=== PATIENT | female | born 1935 | race Caucasian/White ===

== ENCOUNTER 2016-09-21 17:19 | Inpatient (IN) | payer MEDICARE ==
[~2016-09-21] VITALS: Ht 162.6 cm; Wt 84.0 kg
[~2016-09-21 17:19] MED LIST: ASCORBIC ACID500 MG PO; ASPIRIN EC81 M1 PO; CALAN SR240 MG PO; CALCIUM 600+D T1 TA1 PO; COLACE100 MG PO; DIABETA5 MG PO; GARLIC1 CAP PO; GLUCOPHAGE850 MG PO; HYDROCODONE-APA1 TAB PO; LIPITOR80 MG PO; LOTENSIN20 MG PO; MULTI-DAY VITAM1 TAB PO; NEURONTIN 300300 MG PO; PLAVIX75 MG PO; PLETAL50 MG PO; VITAMIN D250000 UNIT PO; ZYLOPRIM300 MG PO
[2016-09-21 18:03] LABS: BASOPHILS 0.2 % (0.0-2.0); EOSINOPHILS 1.5 % (0-7); IMMATURE GRANULOCYTES 1.3 % (0-5); LYMPHOCYTES 11.7 % (15-50); MCH 31.6 pg (26.0-34.0); MCHC 31.6 g/dL (31.0-37.0); MEAN PLATELET VOLUME 9.4 fL (7.4-10.4); MONOCYTES 1.2 % (2-11); NEUTROPHILS 84.1 % (40-80); PLATELET COUNT 295 10x3/uL (130-400); RDW 14.5 % (11.5-14.5)
[2016-09-21 18:34] LABS: ALBUMIN 3.3 g/dL (3.4-5.0); ALKALINE PHOSPHATASE 55 U/L (46-116); ALT (SGPT) 25 U/L (10-68); BILIRUBIN - TOTAL 0.27 mg/dL (0.2-1.3); CALCIUM 9.8 mg/dL (8.5-10.1); CARBON DIOXIDE 19.8 mmol/L (21.0-32.0); CHLORIDE - SERUM 101 mmol/L (98-107); CREATINE KINASE 35 UL (21-215); CREATININE - SERUM 2.5 mg/dL (0.6-1.3); PROTEIN - SERUM 6.3 g/dL (6.4-8.2); SODIUM 134 mmol/L (136-145); UREA NITROGEN 40 mg/dL (7-18); eGFR NON AFRICAN AMERICAN 20 mL/min (90-120)
[2016-09-21 18:38] LABS: CALC OSMOLALITY 294 mosm/kg (275-300); TROPONIN-I < 0.017 ng/mL (0.000-0.060)
[2016-09-21 18:40] LABS: GLUCOSE 409 mg/dL (74-106); POTASSIUM - SERUM 6.8 mmol/L (3.5-5.1)
[2016-09-21 19:05] LABS: APPEARANCE HAZY (CLEAR); BILIRUBIN NEGATIVE (NEGATIVE); COLOR YELLOW (YELLOW); GLUCOSE NEGATIVE (NEGATIVE); KETONE NEGATIVE (NEGATIVE); LEUKOCYTE ESTERASE TRACE (NEGATIVE); NITRITE NEGATIVE (NEGATIVE); PROTEIN 2+ mg/dL (NEGATIVE); SPECIFIC GRAVITY 1.015 (1.005-1.020); UROBILINOGEN NORMAL (NORMAL)
[2016-09-21 19:10] LABS: AMORPHOUS SEDIMENT <1+ /lpf (NONE SEEN); BACTERIA FEW /hpf (NONE SEEN); EPITHELIAL CELLS 0-5 /hpf (0-5); HYALINE CAST 0-5 /lpf (NONE SEEN); RED CELLS - URINE 0-5 /hpf (0-5); WHITE CELLS - URINE 0-5 /hpf (0-5)
--- NOTE | 2016-09-21 19:41 | NUR ---
Patient Name: JAGJIT MCDONALD Admission Status: ER Accout number: [id number] Admission Date: 09-21-2016 : 1935 Admission Diagnosis: hyperkalemia Attending: MARYANN Current LOS: 1 Anticipated DC Date: 09-24-2016 Planned Disposition: Home Health Service Primary Insurance: [employer] PPO MCR ADVANT Discharge Planning Comments: Cm met with patient and spouse to complete initial discharge planning assessment. Spouse gave consent to complete assessment. Patient lives at home with spouse and is usually independent in her care at home. She was recently discharged from hospital with hypoglycemia episodes. She has [facility] and spouse stated they have just admitted her into their services. Spouse plans for the patient plans to return home with resumption of [facility]. CM will continue to follow and assist with dc plan/needs. Melon Packer: Beba Abarca RN, [facility] [phone] Is the patient Alert and Oriented? Yes 0 * How many steps to enter\exit or inside your home? One 0 * PCP Dr. Tariq Mendoza 0 * Pharmacy [facility] near the [facility] 0 * Preadmission Environment Home with Family 0 * ADLs Independent 0 * Equipment Cane 0 * List name and contact numbers for known caregivers / representatives who currently or will assist patient after discharge: Leo Mcdonald - spouse - [phone] 0 * Community resources currently utilized Home Health 0 * Please name any agencies selected above. [facility] 0 * Additional services required to return to the preadmission environment? No 0 * Can the patient safely return to the preadmission environment? Yes 0 * Has this patient been hospitalized within the prior 30 days at any hospital? Yes
--- NOTE | 2016-09-21 19:50 | NUR ---
RECEIVED PATIENT FROM ER VIA STRETCHER TO 2307. PATIENT IS LETHARGIC AND DIFFICULT TO AWAKEN, AROUSES TO VOICE BUT RETURNS TO SLEEP. EYES PERRLA @ 4MM WITH BRISK RESPONSE, SCLERA IS WHITE. ORAL/NASAL MUCOSA IS MOIST AND INTACT, PATIENT ON 100% O2 VIA NRB MASK. S1/S2 NOTED WITH PATIENT NSR ON TELEMETRY WITH HR 64, RHYTHMIC AND REGULAR. BREATHING IS SHALLOW WITH USE OF ACCESSORY MUSCLES, ROUGH LUNG SOUNDS BILATERAL UPPER WITH DIMINISHED LOWER BUT DIFFICULT TO AUSCULTATE FROM SNORING. ABDOMEN IS SOFT AND NON-TENDER, BOWEL SOUNDS HYPOACTIVE X4. HINOJOSA SECURED IN PLACE VIA STATLOCK, CLEAR YELLOW URINE NOTED IN COLLECTION BAG. WEAKNESS NOTED IN ALL EXTREMITIES, [employer] SALES REPRESENTATIVE/PEDAL EQUAL AND BILATERAL. ALL PULSES PALPABLE, R GREAT TOE AMPUTATION NOTED. 20G PIV NOTED R WRIST/L AC, PATENT WITH FLUIDS INFUSING. UNABLE TO ASSESS PAIN DUE TO PATIENT LETHARGY, NO COMPLAINTS AT THIS TIME. NO FURTHER NEEDS AT THIS TIME, ALL VSS AND WILL CONTINUE TO MONITOR.
[2016-09-21 19:59] VITALS: BP 161/75; BMI 32.3
[2016-09-21 20:00] VITALS: BP 164/79
[2016-09-21 21:00] VITALS: BP 149/74
--- NOTE | 2016-09-21 21:00 | NUR ---
NO VISITORS AT THIS TIME, PATIENT RESTING IN BED WITH EYES CLOSED. NRB MASK REMOVED, PATIENT ON VENTI MASK @ 50% WITH O2 SAT 98%. PATIENT NSR ON TELEMETRY WITH HR 71, RHYTHMIC AND REGULAR. NO FURTHER NEEDS AT THIS TIME, ALL VSS AND WILL CONTINUE TO MONITOR.
--- NOTE | 2016-09-21 21:18 | NUR ---
2109 - DR. BUENROSTRO PAGED AND NOTIFIED OF NEW LAB RESULTS AND STATUS REPORT. NEW ORDERS REC'C.
--- NOTE | 2016-09-21 21:30 | NUR ---
ZOSYN PULLED BY RN TRAVELING, TO BE GIVEN 8 HRS POST ER DOSE. PATIENT RESTING IN BED WITH EYES CLOSED, WILL CONTINUE TO MONITOR.
[2016-09-21 22:00] VITALS: BP 161/83
[2016-09-21 23:00] VITALS: BP 157/71
--- NOTE | 2016-09-21 23:00 | NUR ---
REASSESSMENT COMPLETED PER FLOWSHEET, PATIENT RESTING IN BED WITH EYES CLOSED. PATIENT IS ORIENTED X4, BUT STILL SLIGHTLY LETHARGIC. PATIENT IS NSR ON TELEMETRY WITH HR 0F 74, RHYTHMIC AND REGULAR. ROUGH SOUNDS STILL NOTED BILATERAL UPPER WITH DIMINISHED LOWER, "BREATHING IS EASIER" BUT STILL SLIGHTLY SHALLOW WITH O2 SAT 97% ON 50% VENTI MASK. PATIENT DENIES PAIN OR OTHER NEEDS AT THIS TIME, ALL VSS AND WILL CONTINUE TO MONITOR.
[2016-09-22] VITALS (16 sets, daily range): BP systolic 131–177; BP diastolic 63–93; Ht 162.6 cm; Wt 84.0 kg
--- NOTE | 2016-09-22 01:00 | NUR ---
PATIENT RESTING IN BED WITH EYES CLOSED, BREATHING IS SLIGHTLY SHALLOW. PATIENT ROUSES EASILY TO VOICE, CAN FOLLOW DIRECTIONS. PATIENT DENIES PAIN OR OTHER NEEDS AT THIS TIME, ALL VSS AND WILL CONTINUE TO MONITOR.
--- NOTE | 2016-09-22 03:00 | NUR ---
REASSESSMENT COMPLETED PER FLOWSHEET, PATIENT RESTING IN BED WITH EYES CLOSED. BREATHING IS SLIGHTLY SHALLOW, CRACKLES NOTED BILATERAL UPPER WITH DIMINISHED LOWER. O2 SAT 94% ON 50% VENTI MASK, PATIENT NSR ON TELEMETRY WITH HR 81. PATIENT DENIES PAIN OR OTHER NEEDS AT THIS TIME, ALL VSS AND WILL CONTINUE TO MONITOR.
[2016-09-22 03:46] LABS: BASOPHILS 0.2 % (0.0-2.0); EOSINOPHILS 0.3 % (0-7); HEMATOCRIT 34.5 % (36.0-48.0); HEMOGLOBIN 11.2 g/dL (12-16); IMMATURE GRANULOCYTES 0.7 % (0-5); LYMPHOCYTES 11.9 % (15-50); MCH 31.8 pg (26.0-34.0); MCHC 32.5 g/dL (31.0-37.0); MEAN PLATELET VOLUME 9.4 fL (7.4-10.4); MONOCYTES 12.2 % (2-11); NEUTROPHILS 74.7 % (40-80); PLATELET COUNT 310 10x3/uL (130-400); RBC 3.52 10x6/uL (4.00-5.40); RDW 14.3 % (11.5-14.5)
[2016-09-22 03:50] LABS: WBC 12.9 10x3/uL (4.8-10.8)
[2016-09-22 04:05] LABS: ALBUMIN 3.2 g/dL (3.4-5.0); BILIRUBIN - TOTAL 0.48 mg/dL (0.2-1.3); CALCIUM 9.8 mg/dL (8.5-10.1); PROTEIN - SERUM 6.5 g/dL (6.4-8.2)
[2016-09-22 04:06] LABS: ANION GAP 9.5 mmol/L (8-16); CARBON DIOXIDE 31.8 mmol/L (21.0-32.0); POTASSIUM - SERUM 5.3 mmol/L (3.5-5.1)
--- NOTE | 2016-09-22 08:01 | NUR ---
0700 PT AWAKE ALERT AND ORIENTED. ABLE TO OBEY COMMANDS WITH NO DEFICITS NOTED. SINUS RHYTHM NOTED ON MONITOR WITH PVCS. PT REMAINS ON VENTI MASK WITH STABLE O2 SAT. LUNG SOUNDS COURSE/CRACKLES IN UPPER LOBES BILAT AND RIGHT MIDDLE LOBE, LOWER LUNG SOUNDS DIMINISHED BILAT. SCDS ON PT, EXPLAINED RATIONALE FOR USE TO PT. PT DENIES PAIN AT THIS TIME. WILL CONTINUE TO MONITOR
--- NOTE | 2016-09-22 10:23 | NUR ---
0900 PT ABLE TO TAKE PO MEDS WITHOUT DIFFICULTY. DENIES PAIN OR DISCOMFORT AT THIS TIME. VITAL SIGNS STABLE
--- NOTE | 2016-09-22 12:02 | NUR ---
1100 PIV SITED IN LEFT HAND WITH 22GA ANGIOCATH VIA STERILE TECHNIQUE, TAPED AND SECURED. OLD PIV D/C AND PRESSURE DRESSING APPLIED. NO FURTHER CHANGES AT THIS TIME.
--- NOTE | 2016-09-22 19:02 | NUR ---
PT SITTING UP IN BED AT BEDSIDE
--- NOTE | 2016-09-22 20:51 | NUR ---
PT LYING IN BED, AWAKE, ALERT, ORIENTED. PT STATES SHE IS SIGNIFICANTLY WEAK, AND FEELS SHE WILL NOT BE ABLE TO STAND ON THE BEDSIDE SCALE FOR A DAILY WEIGHT. PTS BEDSCALE IS NOT WORKING AT THIS TIME. PT DENIES ANY ACUTE NEEDS. WILL MONITOR CLOSELY. BED LOW, HOB 30 DEGREES, CALL LIGHT IN REACH, SIDE RAILS X 2, SCD'S ON BILATERALLY AND WORKING PROPERLY.
--- NOTE | 2016-09-22 23:47 | NUR ---
PTS FSBS WAS 102 - PT DID EAT A VANILLA PUDDING FOR A BEDTIME SNACK. PT CURRENTLY LYING IN BED, EYES CLOSED, RESPIRATIONS EVEN AND UNLABORED. PT ROUSES EASILY TO VERBAL STIMULI. CONTINUE TO MONITOR CLOSELY. BED LOW, CALL LIGHT IN REACH, SIDE RAILS X 2, HOB 25 DEGREES.
--- NOTE | 2016-09-23 00:55 | NUR ---
PT LYING IN BED, EYES CLOSED, RESPIRATIONS EVEN AND UNLABORED. PT EASILY ROUSABLE TO VERBAL STIMULI. PT REPOSITIONED IN BED, DENIES ANY NEEDS. CONTINUE TO MONITOR CLOSELY. BED LOW, CALL LIGHT IN REACH, SIDE RAILS X 2, HOB 25 DEGREES.
--- NOTE | 2016-09-23 03:50 | NUR ---
PTS FSBS WAS 69 - VANILLA PUDDING GIVEN SNACK
[2016-09-23 04:15] VITALS: BP 117/86; BP 166/72
[2016-09-23 05:54] LABS: BASOPHILS 0.3 % (0.0-2.0); EOSINOPHILS 3.8 % (0-7); HEMATOCRIT 32.4 % (36.0-48.0); HEMOGLOBIN 10.4 g/dL (12-16); IMMATURE GRANULOCYTES 0.2 % (0-5); LYMPHOCYTES 11.4 % (15-50); MCH 31.3 pg (26.0-34.0); MCHC 32.1 g/dL (31.0-37.0); MCV 97.6 fL (80.0-100.0); MEAN PLATELET VOLUME 9.4 fL (7.4-10.4); NEUTROPHILS 72.3 % (40-80); PLATELET COUNT 290 10x3/uL (130-400); RBC 3.32 10x6/uL (4.00-5.40); RDW 14.1 % (11.5-14.5); WBC 11.9 10x3/uL (4.8-10.8)
[2016-09-23 06:38] LABS: ALBUMIN 2.7 g/dL (3.4-5.0); ANION GAP 12.6 mmol/L (8-16); BILIRUBIN - TOTAL 0.6 mg/dL (0.2-1.3); CALCIUM 8.4 mg/dL (8.5-10.1); CARBON DIOXIDE 26.9 mmol/L (21.0-32.0); CREATININE - SERUM 1.6 mg/dL (0.6-1.3); PROTEIN - SERUM 5.9 g/dL (6.4-8.2); URIC ACID 2.4 mg/dL (2.6-7.2)
[2016-09-23 06:41] LABS: MAGNESIUM - SERUM 1.4 mg/dL (1.8-2.4); POTASSIUM - SERUM 4.5 mmol/L (3.5-5.1)
--- NOTE | 2016-09-23 07:00 | NUR ---
RECEIVED REPORT. ASSUMED CARE OF PATIENT. CALL LIGHT WITHIN REACH. LYING ON LEFT LATERAL SIDE, RESP EVEN AND UNLABORED. ALERT/ORIENTED. DENIES NEEDS. NO DISTRESS.
[2016-09-23 08:27] VITALS: BP 177/85
--- NOTE | 2016-09-23 09:30 | NUR ---
HINOJOSA CATHETER REMOVED VIA NURSING STUDENET AND INSTRUCTOR ORDERED VIA . NO DISTRESS.
--- NOTE | 2016-09-23 10:53 | NUR ---
FSBS 194. PATIENT REFUSED 2 UNITS OF COVERAGE AT THIS TIME. NO DISTRESS.
[2016-09-23 12:02] VITALS: BP 168/72
--- NOTE | 2016-09-23 15:15 | NUR ---
ASSISTED PATIENT OOB TO BATHROOM. PATIENT ABLE TO VOID S/P HINOJOSA CATH REMOVAL. ASSISTED PATIENT BACK TO BED. NO DISTRESS.
--- NOTE | 2016-09-23 15:52 | NUR ---
FSBS 98. NO INSULIN COVERAGE REQUIRED.
[2016-09-23 16:38] VITALS: BP 110/56
--- NOTE | 2016-09-23 18:01 | NUR ---
SITTING IN BED WITH CROSSWORD PUZZLE. DENIES NEEDS. CALL LIGHT WITHIN REACH. NO DISTRESS.
[2016-09-23 21:06] VITALS: BP 171/87
--- NOTE | 2016-09-23 21:57 | NUR ---
PT LYING IN BED, EYES CLOSED, RESPIRATIONS EVEN AND UNLABORED. PT IS EASILY ROUSABLE TO VERBAL STIMULI. DENIES ANY CUTE NEEDS. CONTINUE TO MONITOR CLOSELY.
[2016-09-24 01:50] VITALS: BP 175/94
[2016-09-24 05:22] LABS: BASOPHILS 0.2 % (0.0-2.0); EOSINOPHILS 5.1 % (0-7); HEMATOCRIT 33.6 % (36.0-48.0); HEMOGLOBIN 10.8 g/dL (12-16); IMMATURE GRANULOCYTES 0.2 % (0-5); LYMPHOCYTES 14.8 % (15-50); MCH 31.9 pg (26.0-34.0); MCHC 32.1 g/dL (31.0-37.0); MCV 99.1 fL (80.0-100.0); MEAN PLATELET VOLUME 9.4 fL (7.4-10.4); MONOCYTES 10.3 % (2-11); NEUTROPHILS 69.4 % (40-80); PLATELET COUNT 280 10x3/uL (130-400); RBC 3.39 10x6/uL (4.00-5.40); RDW 14.1 % (11.5-14.5); WBC 10.9 10x3/uL (4.8-10.8)
[2016-09-24 05:39] LABS: HEMOGLOBIN A1C 5.8 % (4.8-6.0)
[2016-09-24 05:40] VITALS: BP 168/86
[2016-09-24 05:56] LABS: ALBUMIN 2.8 g/dL (3.4-5.0); ANION GAP 11.3 mmol/L (8-16); BILIRUBIN - TOTAL 0.73 mg/dL (0.2-1.3); CALCIUM 8.6 mg/dL (8.5-10.1); CARBON DIOXIDE 27.2 mmol/L (21.0-32.0); CREATININE - SERUM 1.4 mg/dL (0.6-1.3); MAGNESIUM - SERUM 1.4 mg/dL (1.8-2.4); POTASSIUM - SERUM 4.5 mmol/L (3.5-5.1); PROTEIN - SERUM 5.8 g/dL (6.4-8.2); T4 THYROXIN - FREE 1.15 ng/dL (0.76-1.46); THYROID STIMULATING HORMONE 0.88 uIU/mL (0.36-3.74)
[2016-09-24 08:03] VITALS: BP 149/86
--- NOTE | 2016-09-24 10:27 | NUR ---
PT IS ALERT. ASSESSMENT DONE PER FLOWSHEET. NO OTHER NEEDS AT THIS TIME. WILL CONTINUE TO MONITOR.
[2016-09-24] MEDS ORDERED: FERROUS SULFAT325 MG PO (10:45)
[2016-09-24] MEDS ORDERED: ZANTAC300 MG PO (10:47)
--- NOTE | 2016-09-24 11:25 | NUR ---
PT IS ALERT. NO SS OF DISTRESS AT THIS TIME. WILL CONTINUE TO MONITOR.
[2016-09-24 11:59] VITALS: BP 169/80
--- NOTE | 2016-09-24 12:20 | CN ---
PATIENT NAME:JAGJIT MCDONALD MEDICAL RECORD: [id number] : 35 LOCATION:D.M2 D.2136 ADMIT DATE: 09/21/16 ACCOUNT: [id number] CONSULTING PHYSICIAN: CHERYL NUÑEZ MD REFERRING PHYSICIAN: LETTY BUENROSTRO DO DATE OF CONSULTATION: 09/22/2016 HISTORY OF PRESENT ILLNESS: An 81-year-old lady with a history of peripheral vascular disease status post carotid endarterectomy on the right, has a history of diabetes mellitus, on JOSSE inhibitor, was able to make dinner, but then became more unresponsive, her called EMS. Upon arrival, she was found to be markedly bradycardic as well as hypotensive and hypoglycemic. Blood sugar of 39, D50 with some improvement. Since in the ER, was found to be in a junctional escape rhythm. Potassium was markedly elevated and she is on verapamil for antihypertensive and was given calcium bicarbonate and has responded nicely to therapy with normal sinus rhythm at this point. Potassium has improved markedly, as has creatinine. We are asked to see him concerning his cardiovascular status. PAST MEDICAL HISTORY: 1. History peripheral vascular disease status post endarterectomy on the right. 2. Hypertension. 3. Diabetes mellitus. 4. Dyslipidemia. ALLERGIES: PENICILLIN, SULFA, CLINDAMYCIN, ADHESIVE. HOME MEDICATIONS: Typically include Plavix 75 q. day, atorvastatin 80 mg q. day, benazepril 20 mg p.o. q. day, verapamil 240. day, Neurontin 300 b.i.d., aspirin 81 mg daily, glyburide 5 mg q. day, metformin 1 gram b.i.d. SOCIAL HISTORY: , lives here in [place]. Easily takes care of her ADLs, nonsmoker. REVIEW OF SYSTEMS: The patient reports easy bruising but reports no swollen glands. The patient reports no fever, no night sweats, no significant weight gain, no significant weight loss. No significant exercise tolerance. The patient reports no dry eyes, no irritation, no vision change. Patient reports no difficulty hearing and no ear pain. Patient reports no frequent nose bleeds or nose and sinus problems. Patient reports on arm pain on exertion. No shortness of breath while lying down. No history of heart murmur. Patient reports no cough, no wheezing or coughing up blood. Patient reports no abdominal pain, no vomiting. Normal appetite. No diarrhea and not vomiting blood. No nausea and no constipation. Patient reports no incontinence. No difficulty urinating. No hematuria. No increased frequency. Patient reports no muscle aches. No weakness, no arthralgias, no back pain. No swelling of the extremities. Patient reports no abnormal mole, no jaundice, no rashes. Reports no loss of consciousness. No weakness and no numbness. No seizures, dizziness, or headaches. The patient reports no depression, no sleep disturbance, feeling safe in a relationship and no alcohol abuse. Patient reports on fatigue. Reports no runny nose or sinus pressure. No itching, no hives, and no frequent sneezing. PHYSICAL EXAMINATION: GENERAL: Pleasant female in no acute distress, alert and oriented. CONSULT REPORT [id number] JAGJIT MCDONALD VITAL SIGNS: Blood pressure 156/75, pulse 84, with a sinus rhythm with occasional PVC. HEENT: Normocephalic, atraumatic. NECK: Soft, bruit on the right is noted. HEART: Regular, I-II/ systolic ejection murmur. LUNGS: Good air excursion. ABDOMEN: Soft, nontender. EXTREMITIES: Pulses 2+. There is no edema. NEUROLOGIC: Grossly intact. IMPRESSION: Hyperkalemia, probably with a baseline mild renal insufficiency. Bradyarrhythmia, probably exacerbated by Calan as well. I agree with amlodipine alpha blockade combination for hypertension as you are doing. Continue to monitor for significant bradyarrhythmias, although there has been no recurrence since correction of potassium and holding a verapamil. TRANSINT:[id number] Voice Confirmation ID: [id number] DOCUMENT ID: [id number] CHERYL NUÑEZ MD at 1220 CC: [id number] DICTATION DATE: 09/22/16 1344 ENROLLMENT MANAGEMENT VICE PRESIDENT: 09/22/162053 ADM IN [facility] [address] [place] [address]
[2016-09-24 16:00] VITALS: BP 142/77
--- NOTE | 2016-09-24 20:19 | NUR ---
UP WITH ASSIST TO BR USING WALKER. HS MEDS GIVEN, NS 188, PT REFUSED COVERAGE PER S/S. NO OTHER NEEDS AT THIS TIME, BED LOW, CL IN REACH, WILL CONT TO MONITOR.
--- NOTE | 2016-09-24 22:04 | NUR ---
IV TO LEFT HAND OUT, TIP INTACT, COVERED WITH 2X2 AND TAPE. IV RESITED TO RIGHT FOREARM, 22 GAUGE, FIRST ATTEMPT BY Pauline BAUM RN.
[2016-09-24 22:07] VITALS: BP 184/87
[2016-09-25 01:57] VITALS: BP 167/97
--- NOTE | 2016-09-25 03:51 | NUR ---
UP WITH ASSIST TO BR.
[2016-09-25 05:09] LABS: BASOPHILS 0.5 % (0.0-2.0); EOSINOPHILS 5.7 % (0-7); HEMATOCRIT 32.8 % (36.0-48.0); HEMOGLOBIN 10.5 g/dL (12-16); IMMATURE GRANULOCYTES 0.2 % (0-5); LYMPHOCYTES 18.6 % (15-50); MCH 31.3 pg (26.0-34.0); MCV 97.6 fL (80.0-100.0); MEAN PLATELET VOLUME 9.5 fL (7.4-10.4); MONOCYTES 11.9 % (2-11); NEUTROPHILS 63.1 % (40-80); PLATELET COUNT 266 10x3/uL (130-400); RBC 3.36 10x6/uL (4.00-5.40); WBC 9.7 10x3/uL (4.8-10.8)
[2016-09-25 05:26] VITALS: BP 146/62
[2016-09-25 05:38] LABS: ALBUMIN 2.8 g/dL (3.4-5.0); ANION GAP 13.8 mmol/L (8-16); BILIRUBIN - TOTAL 0.66 mg/dL (0.2-1.3); CALCIUM 8.8 mg/dL (8.5-10.1); CARBON DIOXIDE 25.3 mmol/L (21.0-32.0); CREATININE - SERUM 1.5 mg/dL (0.6-1.3); MAGNESIUM - SERUM 1.6 mg/dL (1.8-2.4); PHOSPHOROUS 4.1 mg/dL (2.5-4.9); POTASSIUM - SERUM 4.1 mmol/L (3.5-5.1); PROTEIN - SERUM 5.8 g/dL (6.4-8.2)
--- NOTE | 2016-09-25 06:28 | NUR ---
NO CHANGES FROM PREVIOUS ASSESSMENT, CALL LIGHT IN REACH. WILL CONTINUE TO WITH PLAN OF CARE.
[2016-09-25] MEDS ORDERED: NORVASC10 MG PO (07:27)
[2016-09-25] MEDS ORDERED: CARDURA4 MG PO (07:27)
[2016-09-25] MEDS ORDERED: GLUCOPHAGE850 MG PO (07:29)
[2016-09-25] MEDS ORDERED: LEVAQUIN500 MG PO (07:33)
[2016-09-25 08:19] VITALS: BP 174/60
--- NOTE | 2016-09-25 08:31 | NUR ---
RECEIVED PT CARE. NO OTHER NEEDS AT THIS TIME. WILL CONTINUE PLAN OF CARE. NO OTHER NEEDS AT THIS TIME. WILL CONTINUE TO [facility].
--- NOTE | 2016-09-29 10:08 | CN ---
PATIENT NAME:JAGJIT WADDELL MEDICAL RECORD: [id number] : 35 LOCATION:D.M2 D.2136 ADMIT DATE: 09/21/16 ACCOUNT: [id number] CONSULTING PHYSICIAN: LINH ADAME MD REFERRING PHYSICIAN: LETTY BUENROSTRO DO DATE OF CONSULTATION: 09/22/2016 DIAGNOSES: 1. Junctional bradycardia. 2. Hyperkalemia. 3. Hypertension. 4. History of rheumatic fever. HISTORY OF PRESENT ILLNESS: Now, we have Ms. Waddell, who presents with decreased level of consciousness, found to have low blood sugar and hyperkalemia. She was initially with a junctional bradycardia. Her hyperkalemia was treated, her potassium is 3.0. She is now sinus rhythm 90s with PVCs. She has no previous cardiac history. She has a history of hypertension. She was on Calan as well as lisinopril. Her creatinine is in the 2 range. PHYSICAL EXAMINATION: GENERAL APPEARANCE: Well-nourished, well-developed, appears stated age. Level of distress, comfortable. PSYCHIATRIC: Mental status, alert, normal affect. Orientation, oriented to time, place and person. EYES: Lids and conjunctiva, noninjected. No discharge, no pallor. ENT: Lips, teeth, gums, normal dentition. Oropharynx, no cyanosis, no pallor. NECK: Carotid arteries, bilateral normal upstroke, no bruits, no thrills. JUGULAR VEINS: No jugular venous pressure or distention. CERVICAL LYMPH NODES: Nontender, nonenlarged. THYROID: Not enlarged. Nontender. No nodules. LUNGS: Respiratory effort, unlabored. CHEST: Normal curvature. No thoracic deformity. No chest wall tenderness. Percussion, resonant. Auscultation, clear. No wheezes, no rales, no rhonchi. CARDIOVASCULAR: Precordial exam, nondisplaced. No heaves or pericardial thrills. Rate and rhythm, regular. Heart sounds, normal S1, normal S2. No S3, no gallop, no rub. Systolic murmur, not heard. Diastolic murmur, not heard. EXTREMITIES: No cyanosis, no edema. Peripheral pulses, full and equal in all extremities, except as noted. No bruits appreciated. ABDOMEN: Soft, nondistended. Normal aorta. No bruit. Nontender. No masses. Liver, nontender, no hepatomegaly. Spleen, nontender, no splenomegaly. MUSCULOSKELETAL: No joint tenderness. No joint swelling. No erythema. NEUROLOGICAL: Normal gait, normal strength, normal tone. SKIN: Warm and dry. REVIEW OF SYSTEMS: The patient reports easy bruising but reports no swollen glands. The patient reports no fever, no night sweats, no significant weight gain, no significant weight loss. No significant exercise tolerance. The patient reports no dry eyes, no irritation, no vision change. Patient reports no difficulty hearing and no ear pain. Patient reports no frequent nose bleeds or nose and sinus problems. Patient reports on arm pain on exertion. No shortness of breath while lying down. No history of heart murmur. Patient reports no cough, no wheezing or coughing up blood. Patient reports no abdominal pain, no vomiting. Normal appetite. No diarrhea and not vomiting CONSULT REPORT [id number] JAGJIT WADDELL. No nausea and no constipation. Patient reports no incontinence. No difficulty urinating. No hematuria. No increased frequency. Patient reports no muscle aches. No weakness, no arthralgias, no back pain. No swelling of the extremities. Patient reports no abnormal mole, no jaundice, no rashes. Reports no loss of consciousness. No weakness and no numbness. No seizures, dizziness, or headaches. The patient reports no depression, no sleep disturbance, feeling safe in a relationship and no alcohol abuse. Patient reports on fatigue. Reports no runny nose or sinus pressure. No itching, no hives, and no frequent sneezing. OVERALL IMPRESSION: Most likely this is all medication induced. Her Calan and lisinopril have been discontinued. She is on Norvasc, her systolic blood pressure in 150s. We will add Cardura as well, would like to stay away from a beta-garett, but most likely the junctional bradycardia was due to hyperkalemia more than the Calan. She continues to have PVCs and tachycardia. We would try low dose beta-garett as well. We will get an echocardiogram for structural cardiac abnormalities in light of the frequent PVCS. TRANSINT:[id number] Voice Confirmation ID: [id number] DOCUMENT ID: [id number] LINH ADAME MD at 1008 CC: [id number] DICTATION DATE: 09/22/16 1227 WOOD BOAT BUILDER SUPERVISOR: 09/22/16 1901 DIS IN 09/25/16 [facility] [address] [place], [facility]901
--- NOTE | 2016-09-29 10:08 | EC ---
PATIENT:JAGJIT MCDONALD DATE OF SERVICE: 09/21/16 SEX: F MEDICAL RECORD: [id number] DATE OF : 35 LOCATION:D.M2 D.213 AGE OF PATIENT: 81 ADMISSION DATE: 09/21/16 REFERRING PHYSICIAN: INTERPRETING PHYSICIAN: LINH BENSON MD ECHOCARDIOGRAM REPORT ECHO CHARGES 4 ECHO COMPLETE CLINICAL DIAGNOSIS: DYSRHYTHMIA ECHOCARDIOGRAPHIC MEASUREMENTS (adult normal given) AC root (d.<3.7cm) 2.9 LV Septum d (<1.2 cm> 2.0 Valve Excursion 2.0 LV Septum (systole) 2.6 Left Atria (s.<4.0cm> 4.0 LVPW d(<1.2cm) 1.8 RV (d.<2.3cm) 2.8 LVPW (sytole) 2.4 LV diastole(<5.6CM) 5.0 MV E-F(>70mm/sec) LV systole 2.7 LVOT Diameter 1.9 MV exc.(>10mm) Est.ejection fraction (50-75%) Pericardial Effusion N DOPPLER: LVIT A 212 E 176. LA RVSP 61.0 LVOT 125 AOP1/2T Asc. Ao 170 RVOT 80.0 RA PA 104 AV Gradient Peak 12.0 AV Mean 5.5 AV Area 1.8 MV Gradient Peak 19.2 MV Mean 7.8 MV Area COMMENTS: Toolroom Machinist: Martin AZULOE Drafter Apprentice:1 Dr. Benson TAPE# PACS DATE OF SERVICE: 09/22/2016 Echocardiogram FINDINGS: 1. Left ventricle chamber size is within normal limits. Left ventricular systolic function is normal. Overall ejection fraction estimated at 55%. 2. Left atrium, right atrium, and right ventricle chamber sizes are upper limits of normal. Left atrium measures 4.0 cm. 3. Valvular structures: Aortic valve is heavily calcified as is the mitral ECHOCARDIOGRAM REPORT [id number] JAGJIT MCDONALD valve; however, neither of these were stenotic only sclerotic. 4. Doppler interrogation only reveals moderate mitral regurgitation, moderate tricuspid regurgitation, no other valvular insufficiency or stenosis; however, pulmonary systolic pressure is elevated estimated at 61 mmHg. 5. No evidence of pericardial effusion or left ventricular thrombus. TRANSINT:[id number] Voice Confirmation ID: [id number] DOCUMENT ID: [id number] LINH BENSON MD at 1008 CC: [id number] DICTATION DATE: 09/23/16 0759 PRODUCTION PLANNER SCHEDULER: 09/23/16 0952 DIS IN 09/25/16 [facility] [address] [id number]
--- NOTE | 2016-10-10 13:49 | CN ---
PATIENT NAME:JAGJIT WADDELL MEDICAL RECORD: [id number] : 35 LOCATION:D.M2 D.2136 ADMIT DATE: 09/21/16 ACCOUNT: [id number] CONSULTING PHYSICIAN: VONNIE JACKSON MD REFERRING PHYSICIAN: LIAM BUENROSTRO DO DATE OF CONSULTATION: 09/22/2016 CONSULT REQUESTING PHYSICIAN: Liam Buenrostro DO. REASON FOR CONSULTATION: Pneumonia and pulmonary nodule. HISTORY OF PRESENT ILLNESS: Ms. Waddell is an 81-year-old female. She was brought in yesterday to the ER. The patient was unresponsive and also she vomited after her lunch. The claims that she might have aspirated. The patient had a similar episode a week ago and she was admitted to [facility]. According to the , she has upper respiratory infection a few days ago and then she got a similar symptom. She is coughing without much sputum production. There is no fever and chills, no night sweats. On arrival to the ER, the patient was bradycardic. Her potassium level was high and she was hypoglycemic. She was given some bicarbonate yesterday and the potassium dropped down to 5.3. The patient does have a pulmonary nodule on the chest radiograph. According to the and patient, this was diagnosed 3 years ago. She has a lung biopsy a year ago and there was calcium deposit and the patient was told that that is benign. The patient was seen at [facility] by a receiving coordinator at that time. REVIEW OF SYSTEMS: Mainly in the history of present illness. PAST MEDICAL HISTORY: 1. Diabetes mellitus, uncontrolled. 2. Hypertension. 3. Peripheral vascular disease. 4. Hyperlipidemia. 5. History of lung nodule. The biopsy was negative a year ago at [facility] and seen by a receiving coordinator. PAST SURGICAL HISTORY: 1. Right carotid endarterectomy. 2. Tonsillectomy. 3. Atherectomy. 4. History of lung biopsy. ALLERGIES: SHE IS ALLERGIC TO PENICILLIN, SULFA, ADHESIVE, CLINDAMYCIN. MEDICATIONS: She was on benazepril and Calan. Her other medications, she is on vancomycin and Zosyn IV now. PHYSICAL EXAMINATION: GENERAL: Now, the patient is awake and alert. She is not in acute distress. VITAL SIGNS: Blood pressure is 156/75, pulse is 84, respiration is 19, temperature 97.5, SpO2 is 98% on 50% Venturi mask. HEENT: Conjunctivae are pink. Sclerae nonicteric. NECK: Supple. No JVD. CHEST: There are bibasilar crackles. No wheezing. HEART: Regular, normal sound, no murmur. CONSULT REPORT [id number] JAGJIT WADDELL ABDOMEN: Soft. Bowel sounds present. No hepatosplenomegaly. RECTAL: Deferred. EXTREMITIES: No cyanosis, no clubbing and no pedal edema. SKIN: Warm, normal turgor. CENTRAL NERVOUS SYSTEM: The patient is awake and alert. There is no obvious cranial nerve abnormality. The gait was not tested. IMAGING: Chest radiograph, there is pulmonary nodule. There is increased interstitial marking. There bibasilar and left upper lobe infiltrate. LABORATORY DATA: CBC: The WBC is 19,000, hemoglobin 12, hematocrit 38 and platelet count 295. Chemistry: Sodium 142, potassium 5.3, BUN is 9.5, creatinine is 2. ABG: The pH on admission was 7.29, pCO2 was 35.6, the pO2 was 45. Potassium on the ABG was 6.8. IMPRESSION: 1. Pneumonia, possible aspiration at the time of nausea and vomiting, possible community-acquired pneumonia with recent admission to [facility]. 2. Acute hypoxic respiratory failure secondary to #1. 3. Nausea and vomiting. 4. Hyperkalemia. 5. Hypoglycemia. 6. Chronic kidney disease, possible, [id number]. 7. History of pulmonary nodule. The workup at [facility] in the past was negative and the patient has negative lung biopsy. She is seen and followed by a receiving coordinator at [facility]. 8. Hypertension. RECOMMENDATION: 1. Continue vancomycin and Zosyn, though the patient is allergic to penicillin, but the patient is tolerating it. 2. I will add Mucinex DM. 3. Albuterol/ipratropium nebulizer p.r.n. 4. Consult nephrology. The patient was already seen by Dr. Benson. Dr. Buenrostro, once again thank you for involving me in the care of Ms. Waddell. TRANSINT:[id number] Voice Confirmation ID: [id number] DOCUMENT ID: [id number] VONNIE JACKSON MD at 1349 CC: DEBORAH INMAN MD [id number] DICTATION DATE: 09/22/16 1311 FISH STRINGER ASSEMBLER: 09/22/162014 DIS IN 09/25/16 [facility] [address] [id number]
== END 2016-09-25 12:00 | disposition home or self-care (01) | DRG 193 ==
LOC: D.ER 17:19 → D.M2 19:11 → D.ICU 19:11 → D.MS 21:40 → D.ICU 21:50 → D.M2 09-22 18:26
PROVIDERS: Emergency Medicine; Internal Medicine Nephrology; ADMIT Family Medicine
DX: J18.9 Pneumonia, unspecified organism (principal); J96.01 Acute respiratory failure with hypoxia; N17.9 Acute kidney failure, unspecified; R00.1 Bradycardia, unspecified; E11.40 Type 2 diabetes mellitus with diabetic neuropathy, unspecified; E11.649 Type 2 diabetes mellitus with hypoglycemia without coma; E11.22 Type 2 diabetes mellitus with diabetic chronic kidney disease; I12.9 Hypertensive chronic kidney disease with stage 1 through stage 4 chronic kidney disease, or unspecified chronic kidney disease; N18.9 Chronic kidney disease, unspecified; E78.5 Hyperlipidemia, unspecified; I73.9 Peripheral vascular disease, unspecified; R91.1 Solitary pulmonary nodule; E87.5 Hyperkalemia; Z87.891 Personal history of nicotine dependence

== ENCOUNTER → 2017-02-10 15:39 | Outpatient (CLI) | payer MEDICARE ==
[2016-09-22 12:16] VITALS: BMI 32.2
[~2017-02-10 15:39] MED LIST changes: +CARDURA4 MG PO; +FERROUS SULFAT325 MG PO; +LEVAQUIN500 MG PO; +NORVASC10 MG PO; +ZANTAC300 MG PO
== END | disposition home or self-care (01) ==
LOC: D.US 15:39
DX: I73.9 Peripheral vascular disease, unspecified (principal); I99.8 Other disorder of circulatory system

== ENCOUNTER → 2017-03-09 07:59 | Outpatient (CLI) | payer MEDICARE ==
[2016-09-22 12:16] VITALS: BMI 32.2
== END | disposition home or self-care (01) ==
LOC: D.MRI 07:59
DX: R93.2 Abnormal findings on diagnostic imaging of liver and biliary tract (principal)

== ENCOUNTER 2017-03-16 07:36 | Outpatient (CLI) | payer MEDICARE ==
[~2017-03-16] VITALS: Ht 162.6 cm; Wt 79.5 kg
[2017-03-16 09:08] LABS: ANION GAP 15.6 mmol/L (8-16); CARBON DIOXIDE 24.2 mmol/L (21.0-32.0); CREATININE - SERUM 1.9 mg/dL (0.6-1.3); POTASSIUM - SERUM 4.8 mmol/L (3.5-5.1)
[2017-03-16 09:09] LABS: INR 0.98 (0.85-1.17); PROTIME 12.8 SECONDS (11.6-15.0)
[2017-03-16] MEDS ORDERED: CARDURA4 MG PO (09:40)
[2017-03-16] MEDS ORDERED: JANUVIA100 MG PO (09:42)
[2017-03-16] MEDS ORDERED: LIPITOR20 MG PO (09:42)
[2017-03-16 09:44] LABS: BASOPHILS 0.8 % (0-2); HEMOGLOBIN 12.1 g/dL (12-16); IMMATURE GRANULOCYTES 0.1 % (0-5); LYMPHOCYTES 15.4 % (15-50); MCH 30.9 pg (26.0-34.0); MCHC 31.8 g/dL (31.0-37.0); MCV 96.9 fL (80.0-100.0); MEAN PLATELET VOLUME 9.5 fL (7.4-10.4); MONOCYTES 10.3 % (2-11); NEUTROPHILS 65.4 % (40-80); PLATELET COUNT 256 10x3/uL (130-400); RBC 3.92 10x6/uL (4.00-5.40); RDW 15.3 % (11.5-14.5); WBC 7.8 10x3/uL (4.8-10.8)
[2017-03-16] MEDS ORDERED: COLACE100 MG PO (09:44)
[2017-03-16] MEDS ORDERED: MULTIPLE VITAMI1 TA1 PO (09:45)
[2017-03-16] MEDS ORDERED: VITAMIN C1000 MG PO (09:47)
[2017-03-16] MEDS ORDERED: CALCIUM 600+D T1 TA1 PO (09:48)
[2017-03-16 09:58] VITALS: BP 145/65; Ht 162.6 cm; Wt 79.5 kg
--- NOTE | 2017-03-16 11:22 | NUR ---
1115 CASE CANCELLED DUE TO ABNORMAL LABS
--- NOTE | 2017-03-16 12:33 | NUR ---
1205 DC INSTS GIVEN VOICED UNDERSTANDING, RELEASED IN WC.
== END 2017-03-16 12:10 | disposition home or self-care (01) ==
LOC: D.OPS 07:36 → D.RAD 10:00 → D.OPS 10:00
PROVIDERS: General Practice
DX: I99.8 Other disorder of circulatory system (principal); T14.8 Other injury of unspecified body region; I74.3 Embolism and thrombosis of arteries of the lower extremities; E11.9 Type 2 diabetes mellitus without complications; Z01.812 Encounter for preprocedural laboratory examination; Z01.811 Encounter for preprocedural respiratory examination; Z53.9 Procedure and treatment not carried out, unspecified reason

== ENCOUNTER 2017-03-18 10:42 | Inpatient (IN) | payer MEDICARE ==
[~2017-03-18] VITALS: Ht 162.6 cm; Wt 79.4 kg
--- NOTE | ~2017-03-18 | HP ---
PATIENT: JAGJIT MCDONALD MEDICAL RECORD: [id number] ACCOUNT: [id number] LOCATION:D. D.2128 : 35 ADMISSION DATE: 03/18/17 HISTORY AND PHYSICAL EXAMINATION CHIEF COMPLAINT: Nonhealing wound. HISTORY OF PRESENT ILLNESS: The patient has a nonhealing wound of the right toe. She has bilateral SFA occlusions. She was here earlier in the week, but was found to have a creatinine that was too high to proceed with a contrast dye study. We brought her in the day before an atherectomy in order to hydrate her and have nephrology see her and hopefully get her creatinine lowered. Her wound is small. It has been longstanding. It has been refractory to treatment. She has decreased sensation in her feet. Palpation aggravates. Nothing alleviates. REVIEW OF SYSTEMS: No nausea, no vomiting, no fever, no chills. PAST MEDICAL AND SURGICAL HISTORY: Peripheral vascular disease, hyperkalemia, chronic renal insufficiency stage III, neuropathy, hypertension, hyperlipidemia, history of right carotid endarterectomy, history of tonsillectomy, history of sinus surgery. ALLERGIES: PENICILLIN. HOME MEDICINES: Norvasc. FAMILY HISTORY: Unknown. SOCIAL HISTORY: She smokes everyday. I have advised her to quit smoking. PHYSICAL EXAMINATION: GENERAL: The patient does not appear acutely ill. She does not appear chronically ill. The entire physical examination was performed in the presence of a female nurse. VITAL SIGNS: Reviewed. EARS: External ears appear normal. EYES: Extraocular movements are intact. NECK: Trachea is midline. CHEST: No intercostal retractions. PULMONARY: Nonlabored, no stridor. ABDOMEN: No peritonitis. EXTREMITIES: Draining wound under the great toe of right foot. PSYCHIATRIC: Normal affect. NEUROLOGIC: Nonfocal, no lethargy. She answers questions appropriately. BACK: No thoracic kyphosis. LYMPHATICS: No lymphangitic streaking of the exposed extremities. IMPRESSION: Nonhealing wound at the right foot in a patient with obstructive peripheral vascular disease. This is a critical limb ischemia situation. PLAN: Hydration. Nephrology recommendations with regard to protection from IV contrast dye. Dr. Purdy to perform arteriogram with interventions tomorrow. TRANSINT:[id number] Voice Confirmation ID: [id number] DOCUMENT ID: [id number] HISTORY AND PHYSICAL [id number] JAGJIT MCDONALD ROBERT MD CC: [id number] DICTATION DATE: 03/18/171933 NUTRITIONIST: 03/18/171952 ADM IN [place] [address] [place] [id number]
--- NOTE | ~2017-03-18 | HEMODYNAMI ---
PATIENT:JAGJIT MCDONALD MEDICAL RECORD: [id number] : 35 LOCATION:[facility] D.2128 ADMISSION DATE: 03/18/17 Generatedon:03/19/201712:51 Patient name: JAGJIT MCDONALD Patient #: [id number] SSN: : 1935 Date of study: 03/19/2017 Page: Of Hemodynamic Procedure Report Patient Data Patient Demographics Procedure consent was obtained First Name: JAGJIT Gender: Female Last Name: TAMARA : 1935 Middle Initial: ANAY Age: 81 year(s) Patient #: [id number] Race: Unknown Additional ID: [id number] Contact details [facility] State: [place] City: [place] Zip code: [address] Admission Admission Data Admission Date: 03/18/2017 Admission Time: 10:42 Room #: D.2128 Procedure Procedure Types Cath Procedure Peripheral Cath Diagnostic Procedure Abd/Extremity Extremities AFRO Lower Ext Arterio Procedure Description Procedure Date Procedure Date: 03/19/2017 Procedure Start Time: 11:49 Procedure Staff Name Function José Luis Purdy MD Performing Physician Elisa Gates RT Scrub Juan Owens RT Monitor Procedure Data Cath Procedure Fluoroscopy Diagnostic fluoroscopy Total fluoroscopy Time: 3.7 time: 3.7 min min Diagnostic fluoroscopy Total fluoroscopy dose: 265 dose: 265 mGy mGy Contrast Material Contrast Material Type Amount (ml) Isovue 300 55 Entry Location Entry Primary Successful Side Size Upsize Upsize Entry Closure Succes sful Closure Location (Fr) 1 (Fr) 2 (Fr) Remarks Device Remarks Femoral Right 5 Fr artery Diagnostic catheters Device Type Used For End Catheter Placement Merit ULTRA BOLUS FLUSH Aortic Root 5Fr 65CM catheter Angiography Hemodynamics Rest Heart Rate: 100 (bpm) Snapshots Pre Cath Intra NCS Post Cath Vital Signs Time Heart Resp SPO2 NIBP (mmHg) Rhythm Pain Sedation Rate (ipm) (%) Status Level (bpm) 11:23:10 91 17 93 151/80(118) NSR 0 (11) 10(A) , No pain 11:27:32 95 14 92 150/79(110) NSR 0 (11) 10(A) , No pain 11:31:42 95 19 95 128/78(100) NSR 0 (11) 10(A) , No pain 11:36:41 91 12 97 Measuring NSR 0 (11) 10(A) , No pain 11:36:57 91 20 97 126/74(99) NSR 0 (11) 10(A) , No pain 11:41:05 89 23 90 101/59(81) NSR 0 (11) 10(A) , No pain 11:45:11 91 17 92 116/68(94) NSR 0 (11) 10(A) , No pain 11:49:25 90 17 92 126/66(92) NSR 0 (11) 10(A) , No pain 11:53:33 89 17 96 112/58(81) NSR 0 (11) 10(A) , No pain 11:57:42 96 18 93 115/67(88) NSR 0 (11) 10(A) , No pain 12:01:52 84 15 96 106/59(83) NSR 0 (11) 10(A) , No pain 12:06:04 82 14 95 102/56(77) NSR 0 (11) 10(A) , No pain 12:10:12 79 14 94 118/63(94) NSR 0 (11) 10(A) , No pain 12:14:22 78 13 95 102/55(78) NSR 0 (11) 10(A) , No pain 12:18:34 77 14 95 102/53(79) NSR 0 (11) 10(A) , No pain 12:22:44 87 19 97 110/63(82) NSR 0 (11) 10(A) , No pain 12:26:54 87 16 96 126/68(93) NSR 0 (11) 10(A) , No pain 12:31:16 84 25 92 118/57(93) NSR 0 (11) 10(A) , No pain 12:35:34 85 17 88 130/63(97) NSR 0 (11) 10(A) , No pain 12:39:48 86 17 90 135/71(99) NSR 0 (11) 10(A) , No pain 12:44:04 89 12 91 142/75(102) NSR 0 (11) 10(A) , No pain 12:48:22 149/83(110) NSR 0 (11) 10(A) , No pain Procedure Log Time Note 11:02:49 Juan Owens RT (R) (CV) sent for patient. Start room use. 11:03:02 Time tracking: Regular hours 11:03:08 Plan of Care:Hemodynamics will remain stable., Cardiac rhythm will remain stable., Comfort level will be maintained., Respiratory function will remain adequate., Patient/ family verbilizes understanding of procedure., Procedure tolerated without complication., Recovers from procedure without complications.. 11:03:15 Patient received from Antavo to IR Alert and oriented. Tansferred to table in Supine position. 11:03:16 Correct patient and procedure confirmed by team. 11:03:17 Signed procedure consent form obtained from patient. 11:03:18 ECG and BP/O2 sat monitors applied to patient. 11:03:19 Full Disclosure recording started 11:03:20 - 11:03:27 H&P Date Dictated: 03/19/2017 H&P Addendum completed by physician on day of procedure. (MUST COMPLETE FOR ALL OUTPATIENTS). 11:03:27 Pre-procedure instructions explained to patient. 11:03:28 Pre-op teaching completed and patient verbalized understanding. 11:08:40 SEE ANESTHESIA NOTE FOR PRE PROCEDURE TIVA 11:08:45 - 11:09:29 Use device set IR Diagnostic 11:09:30 Sterile Angiographic Pack opened to sterile field. 11::31 Bag Decanter opened to sterile field. 11::31 Acist Manifold opened to sterile field. 11::32 Acist Hand Control opened to sterile field. 11::32 Acist Syringe opened to sterile field. 11:22:00 Vital chart was started 11:22:02 Baseline sample Acquired. 11:47:16 Physician arrived 11:47:20 Bilateral groins area was prepped with chlora-prep and draped in steril e fashion 11:47:21 --------ALL STOP TIME OUT------ 11:47:23 Final Timeout: patient, procedure, and site verified with staff and physician. All members of the team are in agreement. 11:47:25 Bilateral groins site verified by team. 11:47:34 Physical assessment completed. ASA score P 4 - A patient with severe systemic disease that is a constant threat to life as per José Luis Purdy MD. 11:47:41 Sedation plan: IV Moderate Sedation Propofol 11:49:05 Procedure started. 11:49:14 Local anesthetic to left femerol artery with Lidocaine 1% by José Luis Purdy MD.INITIAL ACCESS ONLY 11:49:16 Micropuncture VSI 4FR kit opened to sterile field. 11:49:[address] Sheath opened to sterile field. 11:49:16 TUBING, CONTRAST INJCTN HI PRES opened to sterile field. 11:49:19 A Merit ULTRA BOLUS FLUSH 5Fr 65CM catheter was advanced over the wire and used for Aortic Root Angiography. 11:49:31 A 5 Fr sheath was inserted into the Right Femoral artery 11:49:33 Cook DOC .035 guide wire opened to sterile field. 11:54:37 Terumo TORQUE DEVICE PLASTIC .038 opened to sterile field. 11:54:38 Terumo ANGLE 260cm glide wire opened to sterile field. 11:55:25 Cook BENTSON 145cm guide wire opened to sterile field. 11:57:12 Terumo 5FR ANGLED 65CM glide catheter opened to sterile field. 12:09:53 TUBING, CONTRAST INJCTN HI PRES opened to sterile field. 12::54 STOPCOCK, 1-WAY MALE ROTATE LL C opened to sterile field. 12:09:54 STOPCOCK 3-WAY LARGE BORE opened to sterile field. 12:22:25 Procedure ended.(Physican Out) 12:25:10 Contrast amount:Isovue 300 55ml. 12:25:41 Fluoroscopy time 03.70 minutes. 12::47 Fluoroscopy dose: 265 mGy 12:25:47 Flurop Dose total: 265 12:25:55 Sharps counted by scrub and verified by R.N. 12:25:56 Insertion/operative site no bleeding no hematoma. 12:26:08 Post-op/insertion site Left Femoral artery dressed using a 4 x 4 and Tegaderm. 12:26:21 Post left femerol artery:stable 12:26:28 Post Procedure Pulses reassessed and unchanged 12:26:33 Post-procedure physical assessment completed. ASA score P 4 - A patient with severe systemic disease that is a constant threat to life as per José Luis Purdy MD. 12:26:35 Post procedure instruction explained to patient.Patient verbalizes understanding. 12:26:37 Procedure and supply charges have been captured, reviewed, submitted an d are correct. 12:50:33 Report given to Outpatients. 12:50:37 Patient transfered to Outpatients with Bed. 12:51:08 Vital chart was stopped Device Usage Item Name Manufacture Quantity Catalog Number Hospital Part Current Min imal Lot# / Charge Number Stock Stock Serial# Code Sterile Cardinal 1 [id number] [id number] 5 Angiographic Health Pack Bag Decanter Microtek 1 2002S 086196 26586 301994 5 Medical Inc. Acist Acist 1 45500 468924 926312 402404 5 Manifold Medical Systems Inc Acist Hand Acist 1 10560 350912 116249 347473 5 Control Medical Systems Inc Acist Syringe Acist 1 81775 533128 670142 505709 20 Medical Systems Inc Micropuncture VSI VASCULAR 1 7266V 974331 299736 5 VSI 4FR kit SOLUTIONS Terumo 5Fr Terumo [address] Sheath TUBING, Merit 2 [id number] 790054 125102 788810 5 CONTRAST Medical INJCTN HI PRES Merit ULTRA Merit 1 [id number] 195906 049569 5 BOLUS FLUSH Medical 5Fr 65CM catheter Cook DOC .035 Stion Medical 1 R82076 743183 238782 5 [id number] guide wire Terumo TORQUE [place] 1 TD01 589996 269097 578100 5 DEVICE Scientific PLASTIC .038 Terumo ANGLE Terumo 1 [id number] 265802 801125 854286 5 260cm glide wire Cook QUOGUESON [facility] 1 [id number] 753911 212427 5 [id number] 145cm guide wire Terumo 5FR Terumo 1 CG507 597121 373832 5 ANGLED 65CM glide catheter STOPCO, [facility] 1 [id number] 256984 20611 730822 5 [id number] 1-WAY MALE ROTATE LL C STOPCOCK [facility] 1 W47979 956434 1224 931562 5 [id number] 3-WAY LARGE BORE Signature Audit [place] Stage Time Signature Unsigned Intra-Procedure 03/19/2017 Juan 12:51:05 PM Shuffield RT (R) (CV) Signatures Monitor : Juan Signature : Ciaranield RT Date : Time : [facility] [address] [place] [address]
[~2017-03-18 10:42] MED LIST changes: +JANUVIA100 MG PO; +LIPITOR20 MG PO; +MULTIPLE VITAMI1 TA1 PO; +VITAMIN C1000 MG PO
[2017-03-18 12:00] VITALS: BP 144/67; BMI 30.1
--- NOTE | 2017-03-18 12:00 | NUR ---
PT ARRIVED TO UNIT VIA W/C. PT A&O AND AT BEDSIDE. ORIENTED PT TO FLOOR AND ROOM AND SITUATION/PROCEDURES. WILL CONTINUE WITH ADMISSION WORKUP.
[2017-03-18 13:32] LABS: BASOPHILS 0.7 % (0-2); EOSINOPHILS 7.2 % (0-7); HEMOGLOBIN 11.9 g/dL (12-16); IMMATURE GRANULOCYTES 0.2 % (0-5); MCH 31.5 pg (26.0-34.0); MCHC 33.1 g/dL (31.0-37.0); MCV 95.2 fL (80.0-100.0); MEAN PLATELET VOLUME 9.2 fL (7.4-10.4); NEUTROPHILS 57.9 % (40-80); PLATELET COUNT 242 10x3/uL (130-400); RBC 3.78 10x6/uL (4.00-5.40); RDW 15.2 % (11.5-14.5); WBC 8.9 10x3/uL (4.8-10.8)
[2017-03-18 13:36] LABS: INR 1.06 (0.85-1.17); PROTIME 13.7 SECONDS (11.6-15.0)
[2017-03-18 13:53] LABS: ALBUMIN 3.5 g/dL (3.4-5.0); ANION GAP 16.6 mmol/L (8-16); BILIRUBIN - TOTAL 0.44 mg/dL (0.2-1.3); CALCIUM 8.8 mg/dL (8.5-10.1); CARBON DIOXIDE 23.7 mmol/L (21.0-32.0); CREATININE - SERUM 2.1 mg/dL (0.6-1.3); POTASSIUM - SERUM 4.3 mmol/L (3.5-5.1); PROTEIN - SERUM 7.1 g/dL (6.4-8.2)
--- NOTE | 2017-03-18 14:00 | NUR ---
L.WRIST PIV 20 GUAGE INSERTED X3 ATTEMPTS. NS INITIATED AT 100ML/HR ORDERED. PROVIDED PT WITH WATER REQUESTED. NO FURTHER NEEDS AT THIS TIME. CL IN REACH, BED IN LOWEST, SIDE RAILS X2. WILL CPOC.
[2017-03-18 16:00] VITALS: BP 130/63
--- NOTE | 2017-03-18 19:27 | NUR ---
REPORT RECEIVED, WILL ASSUME CARE OF PT, PT SITTING UP IN BED STILL IN CLOTHES, OFFERED HER A GOWN, SHE SAID LATER, BED IS LOW, SRX2, CALL LIGHT IN REACH, WILL CONTINUE PLAN OF CARE
[2017-03-18 20:00] VITALS: BP 123/70
[2017-03-19] VITALS: BP 125/62
--- NOTE | 2017-03-19 02:53 | NUR ---
CALL LIGHT IN REACH. WILL CONTINUE WITH PLAN OF CARE. WILL CONTINUE TO MONITOR.
--- NOTE | 2017-03-19 03:43 | NUR ---
ASSESSMENT COMPLETE, SEE FLOWSHEET, PT SLEEPING, BEEN NPO SINCE MIDNIGHT, BED IS LOW, SRX2, CALL LIGHT IN REACH, WILL CONTINUE PLAN OF CARE
[2017-03-19 04:00] VITALS: BP 105/72
[2017-03-19 05:35] LABS: BASOPHILS 0.5 % (0-2); EOSINOPHILS 9.3 % (0-7); HEMATOCRIT 33.3 % (36.0-48.0); HEMOGLOBIN 11.1 g/dL (12-16); IMMATURE GRANULOCYTES 0.1 % (0-5); LYMPHOCYTES 19.7 % (15-50); MCH 31.4 pg (26.0-34.0); MCHC 33.3 g/dL (31.0-37.0); MCV 94.3 fL (80.0-100.0); MEAN PLATELET VOLUME 9.5 fL (7.4-10.4); MONOCYTES 10.8 % (2-11); NEUTROPHILS 59.6 % (40-80); PLATELET COUNT 249 10x3/uL (130-400); RBC 3.53 10x6/uL (4.00-5.40); RDW 15.2 % (11.5-14.5); WBC 7.4 10x3/uL (4.8-10.8)
[2017-03-19 05:39] LABS: APTT 27.3 SECONDS (22.8-39.4); INR 1.06 (0.85-1.17); PROTIME 13.6 SECONDS (11.6-15.0)
[2017-03-19 05:49] LABS: ALBUMIN 3.1 g/dL (3.4-5.0); ANION GAP 13.6 mmol/L (8-16); BILIRUBIN - TOTAL 0.5 mg/dL (0.2-1.3); CALCIUM 8.8 mg/dL (8.5-10.1); CARBON DIOXIDE 24.7 mmol/L (21.0-32.0); CREATININE - SERUM 1.7 mg/dL (0.6-1.3); POTASSIUM - SERUM 4.3 mmol/L (3.5-5.1); PROTEIN - SERUM 6.5 g/dL (6.4-8.2)
--- NOTE | 2017-03-19 07:30 | NUR ---
ASSESSMENT COMPLETED. TELEMERTY SHOWS SR. O2 AT 2 L/M PER NC.UP ON SIDE OF BED. NO NEEDS VOICED. SL TO LEFT FORE ARM. UP WITH ASSIST. SR UP TIMES 2 WITH CALL LIGHT IN REAC
[2017-03-19 09:31] VITALS: BP 115/53
--- NOTE | 2017-03-19 10:12 | NUR ---
ASSESSMENT COMPLETED. DENIES ANY NEEDS.PT IS ON ROOM AIR. LEFT WRIST IV WITH NS AT 100CCHR. RIGHT GREAT TOE HAS BEEN AMPUTATED. OPEN WOUND UNDER AMPUTATATION SITE. NPO FOR AFRO. WILL MONITOR. SR UP WITH CALL LIGHT IN REACH
--- NOTE | 2017-03-19 10:51 | NUR ---
PRE OPED AND READY FOR SURGERY
[2017-03-19 12:35] VITALS: Ht 162.6 cm; Wt 79.4 kg
--- NOTE | 2017-03-19 14:37 | NUR ---
BACK TO ROOM. V/S STABLE. LEFT GROIN SOFT WITH DRSG DRY AND INTACT. DENIES ANY NEEDS. SR UP WITH CALL LIGHT IN REACH
--- NOTE | 2017-03-19 17:15 | NUR ---
Patient Name: JAGJIT MCDONALD Admission Status: Elective Accout number: [id number] Admission Date: 03-18-2017 : 1935 Admission Diagnosis: Attending: DESTIN MCNAMARA Current LOS: 1 Anticipated DC Date: Planned Disposition: Home Primary Insurance: [employer] CHOICE PPO MCR ADVANT Discharge Planning Comments: * Is the patient Alert and Oriented? Yes 0 * How many steps to enter\exit or inside your home? 1 0 * PCP DR. AYO INMAN 0 * Pharmacy [facility] / [employer] [facility] * Preadmission Environment Home with Family 0 * ADLs Independent 0 * Equipment Cane 0 * Other Equipment NO MEDICAL EQUIPMENT PROVIDER PREFERENCE 0 * List name and contact numbers for known caregivers / representatives who currently or will assist patient after discharge: TUYET MCDONALD, SPOUSE, 0 * Community resources currently utilized None 0 * Please name any agencies selected above. NONE 0 * Additional services required to return to the preadmission environment? No 0 * Can the patient safely return to the preadmission environment? Yes 0 * Has this patient been hospitalized within the prior 30 days at any hospital? No 0 CM MET WITH PT IN ROOM TO DISCUSS DISCHARGE PLANNING AND NEEDS. PT REPORTS LIVING AT HOME INDEPENDENTLY WITH HER SPOUSE. PT HAS A CANE WITH NO MEDICAL EQUIPMENT PROVIDER PREFERENCE AND NO OUTSIDE SERVICES ASSISTING IN THE HOME. PT HAD HOME HEALTH WITH [facility] BUT CANCELLED THEM SHE WAS DOING BETTER. CM DISCUSSED AVAILABILITY OF HOME HEALTH, REHAB SERVICES AND MEDICAL EQUIPMENT. PT DENIES DISCHARGE NEEDS, REPORTS HER SPOUSE WILL PICK HER UP FOR DISCHARGE HOME. Production Estimator: Dante Lorenz
[2017-03-19 20:00] VITALS: BP 146/69
--- NOTE | 2017-03-19 21:34 | NUR ---
SHIFT ASSESSMENT COMPLETE AT THIS TIME. SHE STATES THAT SHE IS STARVING AND THAT SHE IS SCARED HER BLOOD SUGAR IS DROPPING. DELIVERED SANDWICH TRAY, DIET COKE, AND PUDDING PER REQUEST. SHE STATES THAT SHE FEELS MUCH BETTER AT THIS TIME.A&O WITH NO PAIN. PT IS ON ROOM AIR WITH REGULAR RESPIRATIONS AND BREATH SOUNDS. S1S2 AUDIBLE. RADIAL AND PEDAL PUSLES PALP. ABD SOFT AND NONTENDER TO TOUCH. R GREAT TOE AMPUTATION. DRESSING CDI ON R GREAT TOE. INSTRUCTED PT TO USE HER CALL LIGHT WHEN SHE NEEDS TO GET OUT OF THE BED. SHE STATES THAT SHE UNDERSTANDS. WILL CONT WITH POC. NO FURTHER REQUESTS.
[2017-03-20] VITALS: BP 132/65
--- NOTE | 2017-03-20 00:56 | NUR ---
PT RESTING PEACEFULLY AT THIS TIME. NO SIGNS OF DISTRESS NOTED. WILL CONT WITH POC.
[2017-03-20 04:00] VITALS: BP 137/68
--- NOTE | 2017-03-20 04:05 | NUR ---
PT REFUSED NS AND STATES THAT SHE IS GOING HOME TODAY. EDUCATED HER ON THE BENEFITS OF HAVING THE NS, BUT SHE INSISTS THAT SHE IS GOING HOME. WILL CONT WITH POC. SHE DENIES ANY REQUEST AT THIS TIME. WILL CONT TO MONITOR.
[2017-03-20 04:58] LABS: BASOPHILS 0.3 % (0-2); EOSINOPHILS 5.4 % (0-7); HEMATOCRIT 34.2 % (36.0-48.0); HEMOGLOBIN 11.2 g/dL (12-16); IMMATURE GRANULOCYTES 0.2 % (0-5); LYMPHOCYTES 15.9 % (15-50); MCH 30.9 pg (26.0-34.0); MCHC 32.7 g/dL (31.0-37.0); MCV 94.5 fL (80.0-100.0); MEAN PLATELET VOLUME 9.4 fL (7.4-10.4); MONOCYTES 9.9 % (2-11); NEUTROPHILS 68.3 % (40-80); PLATELET COUNT 241 10x3/uL (130-400); RBC 3.62 10x6/uL (4.00-5.40); RDW 15.3 % (11.5-14.5)
[2017-03-20 05:06] LABS: WBC 9.5 10x3/uL (4.8-10.8)
[2017-03-20 05:12] LABS: ANION GAP 10.6 mmol/L (8-16); CALCIUM 8.7 mg/dL (8.5-10.1); CARBON DIOXIDE 25.8 mmol/L (21.0-32.0); CREATININE - SERUM 1.5 mg/dL (0.6-1.3); POTASSIUM - SERUM 4.4 mmol/L (3.5-5.1)
--- NOTE | 2017-03-20 07:00 | NUR ---
REPORT RECEIVED FROM OFF GOING NURSE. PT IN ROOM WATCHING TV WITH 0 S/SX OF DISTRESS/DISCOMFORT NOTED. BREATHING NORMAL AND UNLABORED. A&OX4. PT HAS A LEFT WRIST IV WITH NO FLUIDS INFUSING. WHENEVER ATTEMPTED TO RESTART IV FLUIDS PER ORDRES, SHE STATED "I DONT WANT ANY IV FLUIDS. IM DRINKING PLEANTY OF FLUIDS AND IM GOING TO BE LEAVING TODAY". HAS AN AMPUTATED RIGHT GREAT TOE WITH C/D/I DRESSING. CALL LIGHT IN REACH. WILL CONT POC
[2017-03-20 08:00] VITALS: BP 154/55
--- NOTE | 2017-03-20 09:00 | NUR ---
PT ORDERS ARE NPO. SHE COMPLAINED THAT SHE DID NOT HAVE A MEAL TRAY. NOTIFIED AND NEW ORDRES FOR A DIEBETIC DIET. A BREAKFAST TRAY WAS BROUGHT TO HER ROOM.
[2017-03-20 12:00] VITALS: BP 130/57
--- NOTE | 2017-03-20 13:40 | NUR ---
NEW ORDRES TO DC PT FROM HOSPITAL. AND SON AT BED SIDE. ALL PAPER WORK SIGNED AND PLACED IN CHART. ALL DC INSTUCTIONS EXPLAINED TO PT AND . ASKED IF THEY HAD ANY QUESTIONS AND THEY SAID NO. EXPLAINED THEIR MEDICATIONS AND THE FOLLOW UP APPOINTMENT. VERBALLY ACKNOLEGDE AND PAPER WORK GIVEN WITH MEDS AND DATES TO FOLLOW. STATED THAT ALL BELONGINS ARE ACCOUNTED FOR. IV DC WITH TIP INTACT AND PRESSURE DRESSING APPLIED. LEFT VIA W/C. PT BREATHING NORMALLY AND UNLABORD. 0 S/SX OF DISTRESS/DISCOMFORT NOTED.
--- NOTE | 2017-03-20 16:31 | NUR ---
Patient Name: JAGJIT MCDONALD Encounter No: [id number] : 1935 Primary Insurance: [employer] CHOICE PPO MCR ADVANT Anticipated DC Date: 03-20-2017 Planned Disposition: Home DCP follow-up note: CM MET WITH PT IN ROOM TO DISCUSS DISCHARGE NEEDS AND PLANNING. CM DISCUSSED AVAILABILITY OF HOME HEALTH, REHAB SERVICES AND MEDICAL EQUIPMENT. PT DENIES DISCHARGE NEEDS. SPOUSE TO TRANSPORT HOME AT DISCHARGE. IMPORTANT MESSAGE FROM MEDICARE PROVIDED AND EXPLAINED. Dante Lorenz
== END 2017-03-20 13:43 | disposition home or self-care (01) | DRG 300 ==
LOC: D.M2 10:42 → D.SDCHOLD 03-19 11:00 → D.M2 03-20 13:43
PROVIDERS: General Practice; Internal Medicine Nephrology; ADMIT Surgery
PROC: B41F1ZZ Fluoroscopy of Right Lower Extremity Arteries using Low Osmolar Contrast (ICD-10-PCS; principal; 2017-03-19 11:00)
DX: I74.3 Embolism and thrombosis of arteries of the lower extremities (principal); N17.9 Acute kidney failure, unspecified; E87.5 Hyperkalemia; E11.22 Type 2 diabetes mellitus with diabetic chronic kidney disease; I12.9 Hypertensive chronic kidney disease with stage 1 through stage 4 chronic kidney disease, or unspecified chronic kidney disease; N18.3 Chronic kidney disease, stage 3 (moderate); Z72.0 Tobacco use; E11.40 Type 2 diabetes mellitus with diabetic neuropathy, unspecified; M10.9 Gout, unspecified; D64.9 Anemia, unspecified; E78.5 Hyperlipidemia, unspecified